=== PATIENT | female | born 1990 | race Caucasian/White ===

== ENCOUNTER 2017-12-23 22:17 | Emergency (ER) | payer OTHER ==
[~2017-12-23] VITALS: Ht 152.4 cm; Wt 90.7 kg
[2017-12-24] MEDS ORDERED: KETO10TA2 PO (05:06)
[2017-12-24] MEDS ORDERED: INTESTINEX680 M1 PO (05:06)
[2017-12-24] MEDS ORDERED: LEVSIN/SL0.125 MG PO (05:06)
[2017-12-24] MEDS ORDERED: ZANTAC300 MG PO (05:06)
== END 2017-12-24 05:19 | disposition home or self-care (01) ==
LOC: ER 22:17
DX: R10.12 Left upper quadrant pain (principal)